=== PATIENT | male | born 1945 | race Caucasian/White ===

== ENCOUNTER 2018-09-18 13:10 | Emergency (ER) | payer MEDICARE ==
[2018-09-18] MEDS ORDERED: MEDDOSEPAK PO (14:00)
[2018-09-18] MEDS ORDERED: MITIGARE0.6 MG PO (14:00)
[2018-09-18] MEDS ORDERED: NAPROSYN500 MG PO (14:00)
[2018-09-18 14:06] VITALS: BP 122/66
== END 2018-09-18 14:10 | disposition home or self-care (01) ==
LOC: ED 13:10
DX: M10.021 Idiopathic gout, right elbow (principal); I10 Essential (primary) hypertension

== ENCOUNTER 2021-08-07 10:30 | Emergency (ER) | payer MEDICARE ==
[~2021-08-07] VITALS: Ht 170.2 cm; Wt 84.1 kg
[~2021-08-07 10:30] MED LIST: MEDDOSEPAK PO; MITIGARE0.6 MG PO; NAPROSYN500 MG PO
[2021-08-07 10:49] VITALS: BP 193/95
[2021-08-07 11:00] VITALS: BP 164/92
[2021-08-07 11:05] LABS: HEMATOCRIT 49.1 % (39.0-50.0); IMMATURE GRANULOCYTES 0.2 % (0.0-5.0); MEAN CELL VOLUME 91.3 fL CALC (80.0-100.0); MEAN CORPUSCULAR HGB 29.7 pG CALC (26.0-32.0); MEAN CORPUSCULAR HGB CONC 32.6 g/dL CAL (32.0-36.0); NEUT# 5.93 thou/uL (1.82-7.42); RED BLOOD COUNT 5.38 mill/uL (4.70-6.10); RED CELL DISTRI WIDTH 14.4 % (11.5-15.5)
[2021-08-07 11:18] LABS: ALBUMIN 4.1 g/dL (3.2-5.0); ALKALINE PHOSPHATASE 81 u/l (38-126); AMYLASE 63 u/l (30-110); ANION GAP 11 (6-22 (CALC)); BILIRUBIN, TOTAL 1.3 mg/dL (0.0-1.4); BUN 17 mg/dL (8-23); BUN/CREATININE RATIO 18 (12-20 (CALC)); CARBON DIOXIDE 27 mmol/l (22-30); CHLORIDE 105 mmol/l (95-108); GFR FOR AFR.AMER. > 60 ML/MIN (>=60 (CALC)); GFR OTHER RACES > 60 ML/MIN (>=60 (CALC)); LIPASE 48 u/l (23-300); POTASSIUM 4.7 mmol/l (3.5-5.1); SGOT/AST 22 u/l (19-48); SODIUM 138 mmol/l (137-146)
[2021-08-07 11:26] LABS: ACT PARTIAL THROMBO TIME 27.9 SECONDS (20.0-32.5); INTERNATIONAL NORMALIZED RATIO 0.9 RATIO (0.7-1.3); PROTHROMBIN TIME 9.5 SECONDS (9.0-12.5)
[2021-08-07 11:31] VITALS: BP 138/82
[2021-08-07 12:00] VITALS: BP 142/70
[2021-08-07] MEDS ORDERED: VALSARTAN80 MG (12:00)
[2021-08-07 12:28] VITALS: BP 142/70
== END 2021-08-07 12:28 | disposition short-term general hospital (02) ==
LOC: ED 10:30
DX: I21.4 Non-ST elevation (NSTEMI) myocardial infarction (principal); I10 Essential (primary) hypertension; E78.5 Hyperlipidemia, unspecified; M10.9 Gout, unspecified
CPT/HCPCS: J1644